=== PATIENT | female | born 1975 | race American Indian/Alaskan Native ===

== ENCOUNTER 2020-06-30 11:36 | Emergency (ER) | payer SELFPAY ==
--- NOTE | 2020-06-30 14:20 | Event Note ---
ED Screening Note ED Screening Note: Patient presents for a fall that occurred today She states that she has had generalized weakness for 2 to 3 weeks She states that today she just felt weak all over and fell She hit her head and her face She is complaining of left-sided facial pain She denies any chest pain, shortness of breath, dizziness prior to the fall She denies any headache, vision changes, loss of consciousness, nausea, vomiting, diarrhea, fever numbness, unilateral weakness She denies any past medical history No allergies to medications Last menstrual cycle a month ago She is currently at the [employer] for [employer] This initial assessment/diagnostic orders/clinical plan/treatment(s) is/are subject to change based on patients health status, clinical progression and re- assessment by fellow clinical providers in the ED. Further treatment and workup at subsequent clinical providers discretion. Patient/guardian urged not to elope from the ED as their condition may be serious if not clinically assessed and managed. Initial orders include: Labs, EKG, CT, UA, UDS
[2020-06-30 15:10] LABS: Amphetamine Screen,Urine Negative; Benzodiazepines Screen,Urine Negative; Cannabinoid Screen,Urine Negative; Cocaine Screen,Urine Negative; Methadone Screen,Urine Negative; Opiate Screen,Urine Negative
--- NOTE | 2020-06-30 15:37 | Cat Scan Report ---
CT head/brain wo con INDICATION / CLINICAL INFORMATION: 44 years Female; MAIN. TECHNIQUE: Routine CT head without contrast. All CT scans at this location are performed using CT dos e reduction for ALARA by means of automated exposure control. COMPARISON: None. FINDINGS: BRAIN / INTRACRANIAL CONTENTS: There is a well-circumscribed, partially calcified lesion in the expec tammie location of the pineal gland, measuring 1 cm maximum dimension. Pre and postcontrast MRI of the b rain might be helpful for further evaluation. Otherwise, no acute hemorrhage, mass effect, midline shift, hydrocephalus, or acute, large territori al infarct. No signs of significant atrophy or chronic infarct. No significant white matter abnormali ty seen. CRANIOCERVICAL JUNCTION: No significant abnormality. ORBITS: No significant abnormality of visualized orbits. SINUSES / MASTOIDS: No significant abnormality in the visualized paranasal sinuses or mastoid air kishore ls. ADDITIONAL FINDINGS: None. IMPRESSION: 1. Well-circumscribed, benign-appearing pineal lesion suspected - pre and postcontrast MRI of the bra in may be helpful for further evaluation, if no prior exams are available for comparison. 2. Otherwise, no focal intra-axial mass, hemorrhage, hydrocephalus, or acute, large territorial infar ct. Signer Name: Mani Iniguez MD, III Signed: 06/30/2020 3:33 PM Workstation Name: Medical Referral [employer]
--- NOTE | 2020-06-30 15:39 | Cat Scan Report ---
CT facial bones wo con INDICATION / CLINICAL INFORMATION: 44 years Female; MAIN. TECHNIQUE: Thin cut axial images obtained. Sagittal and coronal reconstructions performed. All CT scans at this location are performed using CT dose reduction for ALARA by means of automated exposure control. COMPARISON: None available. FINDINGS: Subcutaneous soft tissue swelling is seen in the left malar region. No signs of underlying facial bone fracture appreciated. Orbits and surrounding soft tissues are otherwise grossly normal. IMPRESSION: 1. No signs of acute bony facial trauma. Signer Name: Mani Iniguez MD, III Signed: 06/30/2020 3:35 PM Workstation Name: [id number]
[2020-06-30 15:53] LABS: Amorphous Crystals,Urine 2+; Mucus,Urine 2+ /HPF
[2020-06-30 16:05] LABS: Bilirubin,Urine Negative (Negative); Blood,Urine Negative (Negative); Color,Urine Yellow (Yellow)
[2020-06-30 16:06] LABS: PH,Urine 8.5 (5.0-7.0); Protein,Urine <15 mg/dL mg/dL (Negative); Urobilinogen,Urine < 0.2 mg/dL (<2.0)
[2020-06-30 16:28] LABS: Basophils % (Auto) 0.5 % (0.0-1.8); Eosinophils # (Auto) 0.1 K/mm3 (0.0-0.4); Eosinophils % (Auto) 0.9 % (0.0-4.3); Hematocrit 37.4 % (30.3-42.9); Hemoglobin 12.8 gm/dl (10.1-14.3); Lymphocytes # (Auto) 2.7 K/mm3 (1.2-5.4); Lymphocytes % (Auto) 31.5 % (13.4-35.0); Mean Corpuscular HGB Conc 34 % (30-34); Mean Corpuscular Volume 91 fl (79-97); Monocytes # (Auto) 1.2 K/mm3 (0.0-0.8); Platelet Count 306 K/mm3 (140-440); Red Blood Count 4.12 M/mm3 (3.65-5.03); Red Cell Distribution Width 15.8 % (13.2-15.2)
[2020-06-30 16:44] LABS: Alanine Aminotransferase 10 units/L (7-56); Albumin 3.8 g/dL (3.9-5); Blood Urea Nitrogen 7 mg/dL (7-17); Calcium 9.3 mg/dL (8.4-10.2); Hemolysis Index 2
[2020-06-30 16:45] LABS: BUN/Creatinine Ratio 18
--- NOTE | 2020-06-30 16:49 | Emergency Department Report ---
ED Fall HPI - General Chief Complaint: Fall Stated Complaint: FALL/LFT SIDE FACE PAIN Time Seen by Provider: 06/30/20 14:15 Source: patient Mode of arrival: Ambulatory - History of Present Illness Initial Comments: 44-year-old female presents to the emergency room stating she had a ground-level fall this afternoon and hit the left side of her face. Patient states that she had tripped. Patient denies any other injuries. Patient denies any nausea no vomiting no headache no blurred vision no change of vision no chest pain no shortness of breath. Patient denies any loss of consciousness. Patient is currently living at a sober living in [place]. She had recently been discharged from [facility] for depression and just not taking care of herself. MD Complaint: fall -: This afternoon Fall From: standing Place Fall Occurred: home Loss of Consciousness: none Prolonged Down Time?: no Symptoms Prior to Fall: none Location: face Context: tripped/slipped Associated Symptoms: denies - Related Data Allergies Allergy/AdvReac Type Severity Reaction Status Date / Time No Known Allergies Allergy Unverified 06/30/20 12:08 ED Review of Systems ROS: Stated complaint: FALL/LFT SIDE FACE PAIN Other details as noted in HPI ED Past Medical Hx - Past Medical History Previous Medical History?: Yes Hx Psychiatric Treatment: Yes (Depression) - Surgical History Past Surgical History?: No - Social History Smoking Status: Never Smoker Substance Use Type: None ED Physical Exam - General Limitations: No Limitations ED Course Vital Signs 06/30/20 12:02 Temperature 98.3 F Pulse Rate 117 H Respiratory 20 Rate Blood Pressure 106/77 O2 Sat by Pulse 96 Oximetry ED Medical Decision Making - Lab Data Result diagrams: 06/30/20 16:09 - Radiology Data Radiology results: report reviewed Cat Scan Report Signed Patient: FIORELLA THOMAS MR#: [id number] : 1975 Acct:[id number] Age/Sex: 44 / F ADM Date: 06/30/20 Loc: ED Attending Dr: Ordering Physician: MARGARITO GREGORY Date of Service: 06/30/20 Procedure(s): CT facial bones wo con Accession Number(s): [id number] cc: MARGARITO GREGORY CT facial bones wo con INDICATION / CLINICAL INFORMATION: 44 years Female; MAIN. TECHNIQUE: Thin cut axial images obtained. Sagittal and coronal reconstructions performed. All CT scans at this location are performed using CT dose reduction for ALARA by means of automated exposure control. COMPARISON: None available. FINDINGS: Subcutaneous soft tissue swelling is seen in the left malar region. No signs of underlying facial bone fracture appreciated. Orbits and surrounding soft tissues are otherwise grossly normal. IMPRESSION: 1. No signs of acute bony facial trauma. Signer Name: Mani Iniguez MD, III Signed: 06/30/2020 3:35 PM Workstation Name: [email or web address] Transcribed By: HR Dictated By: Mani Iniguez MD Electronically Authenticated By: Mani Iniguez MD Signed Date/Time: 06/30/201534 DD/ 32 TD/TT: Patient Name: FIORELLA THOMAS Gender: Female Date of : 1975 Home Phone: Referring Provider: FLEX GARCIA Organization: [facility] Accession Number: [id number] Requested Date: June 30, 2020 14:15 Report Status: Final Requested Procedure: 1 Procedure Description: CT head/brain wo con Modality: CT Findings Reporting MD: Mani Iniguez Dictation Time: June 30, 2020 14:33 President Celebrity Acquistion: Not available Water Pipe Installer Date: CT head/brain wo con INDICATION / CLINICAL INFORMATION: 44 years Female; MAIN. TECHNIQUE: Routine CT head without contrast. All CT scans at this location are performed using CT dose reduction for ALARA by means of automated exposure control. COMPARISON: None. FINDINGS: BRAIN / INTRACRANIAL CONTENTS: There is a well-circumscribed, partially calcified lesion in the expected location of the pineal gland, measuring 1 cm maximum dimension. Pre and postcontrast MRI of the brain m ight be helpful for further evaluation. Otherwise, no acute hemorrhage, mass effect, midline shift, hydrocephalus, or acute, large territorial infarct. No signs of significant atrophy or chronic infarct. No significant white matter abnormality seen. CRANIOCERVICAL JUNCTION: No significant abnormality. ORBITS: No significant abnormality of visualized orbits. SINUSES / MASTOIDS: No significant abnormality in the visualized paranasal sinuses or mastoid air cells. ADDITIONAL FINDINGS: None. IMPRESSION: 1. Well-circumscribed, benign-appearing pineal lesion suspected - pre and postcontrast MRI of the brain may be helpful for further evaluation, if no prior exams are available for comparison. 2. Otherwise, no focal intra-axial mass, hemorrhage, hydrocephalus, or acute, large territorial infarct. Signer Name: Mani Iniguez MD, III Signed: 06/30/2020 2:33 PM Workstation Name: [email or web address] - Medical Decision Making 44-year-old female presents to the emergency room stating she had a ground-level fall this afternoon and hit the left side of her face. Patient states that she had tripped. Patient denies any other injuries. Patient denies any nausea no vomiting no headache no blurred vision no change of vision no chest pain no shortness of breath. Patient denies any loss of consciousness. Patient is currently living at a sober living in [place]. She had recently been discharged from [facility] for depression and just not taking care of h erself. EKG shows no STEMI mild left atrial enlargement. CT of face shows no fracture. CT of head shows no acute abnormalities. 1. Well-circumscribed, benign-appearing pineal lesion suspected - pre and postcontrast MRI of the brain may be helpful for further evaluation, if no prior exams are available for comparison. Patient will be referred to a neurologist for further evaluation. Patient denies any pain at this time. Patient will be discharged in stable condition. Patient is able to eat and drink without any difficulties or nausea vomiting. Critical care attestation.: If time is entered above; I have spent that time in minutes in the direct care of this critically ill patient, excluding procedure time. ED Disposition Clinical Impression: Fall from ground level, Facial contusion, Facial abrasion Disposition: DC-01 TO HOME OR SELFCARE Is pt being admited?: No Does the pt Need Aspirin: No Condition: Stable Instructions: Fall Prevention in the Home, Adult, [id number], Abrasion, Cont usion Additional Instructions: I recommend Tylenol or ibuprofen if you have any pain. I recommend to follow-up with a neurologist as there was an incidental finding of a cyst benign lesion in your brain. No other abnormalities of your CT scans. Referrals: PRIMARY MD CHRISTO [Primary Care Provider] - 3-5 Days [facility] [Provider Group] - 3-5 Days ERICH BOTELLO II, MD [Staff Physician] - 3-5 Days
[2020-06-30 18:00] VITALS: BP 128/84
== END 2020-06-30 18:07 | disposition home or self-care (01) ==
LOC: ED 11:36
DX: S00.83XA Contusion of other part of head, initial encounter (principal); W17.89XA Other fall from one level to another, initial encounter; Y93.89 Activity, other specified; Y92.89 Other specified places as the place of occurrence of the external cause; Y99.8 Other external cause status; Z79.899 Other long term (current) drug therapy
CPT/HCPCS: 36415; 70450; 70486; 80053; 80307; 81001; 82550; 83735; 84443; 84703; 85025; 93005